=== PATIENT | male | born 1995 | race African-American/Black ===

== ENCOUNTER 2021-01-25 17:21 | Emergency (ER) | payer OTHER ==
[~2021-01-25] VITALS: Ht 180.3 cm; Wt 129.5 kg
[2021-01-25] MEDS ORDERED: MOTRIN 400400 MG/TAB PO (18:55)
[2021-01-25] MEDS ORDERED: ROBAXIN 50500 MG/TAB PO (18:55)
[2021-01-25] MEDS ORDERED: TYLENOL 325MG325 MG PO (18:55)
[2021-01-25 19:09] VITALS: BP 144/84; PULSE 82; TEMP 98
== END 2021-01-25 19:11 | disposition home or self-care (01) ==
LOC: COL.ER 17:21
DX: M25.511 Pain in right shoulder (principal)
CPT/HCPCS: J1885